=== PATIENT | male | born 1975 | race Hispanic/Latino ===

== ENCOUNTER 2021-08-31 09:51 | Inpatient (IN) | payer SELFPAY ==
[~2021-08-31] VITALS: Ht 177.8 cm; Wt 108.9 kg
[2021-08-31] MEDS ORDERED: LACTATED RINGER'S 1,000 ML INJ ONE ×2 (10:15→11:45)
[2021-08-31 10:22] LABS: BASOPHILS % 0.3 % (0.0-1.0); EOSINOPHILS # (AUTO) 0.2 (0.0-0.4); EOSINOPHILS % 1.2 % (0.0-6.0); HEMATOCRIT 38.6 % (38.2-49.6); HEMOGLOBIN 12.9 g/dL (14.0-18.0); LYMPHOCYTES # (AUTO) 0.8 (1.0-3.2); LYMPHOCYTES % 6.4 % (18.0-39.1); MEAN CORPUSCULAR HGB CONC 33.4 g/dL (31-35); MEAN CORPUSCULAR VOLUME 80.9 fL (81-99); MONOCYTES # (AUTO) 0.5 (0.2-0.8); MONOCYTES % 4.1 % (4.4-11.3); NEUTROPHILS # (AUTO) 10.6 (2.1-6.9); NEUTROPHILS % 87.3 % (38.7-80.0); PLATELET COUNT 267 x10e3/uL (140-360); RED BLOOD COUNT 4.77 x10e6/uL (4.3-5.7); RED CELL DISTRIBUTION WIDTH 12.6 % (11.7-14.4)
[2021-08-31 10:45] LABS: ALBUMIN/GLOBULIN RATIO 0.8 (0.8-2.0); ANION GAP 18.7 mmol/L (8-16); CALCIUM 7.8 mg/dL (8.4-10.2); CREATININE, SERUM 3.23 mg/dL (0.72-1.25); LIPASE 28 U/L (8-78); POTASSIUM 4.7 mmol/L (3.5-5.1)
[2021-08-31] MEDS ORDERED: LACTATED RINGER'S 1,000 ML IV ONE (11:00)
[2021-08-31] MEDS ORDERED: INSULIN REGULAR, HUMAN 100 UNIT/1 ML IV ONE (11:00)
[2021-08-31 12:00] LABS: CLARITY,URINE CLOUDY (CLEAR); COLOR,URINE YELLOW (YELLOW); LEUKOCYTE ESTERASE ,URINE NEGATIVE (NEGATIVE); NITRITE,URINE NEGATIVE (NEGATIVE); PROTEIN,URINE DIPSTICK >=300 (NEGATIVE)
[2021-08-31 12:01] LABS: BACTERIA,URINE MODERATE /HPF; EPITHELIAL CELLS,URINE MODERATE /LPF; KETONES,URINE NEGATIVE (NEGATIVE); URINE UROBILINOGEN 0.2 mg/dL (0.2 - 1)
[2021-08-31] MEDS ORDERED: Morphine 4mg INJECTION 4 MG/ML INJ IV ONE (13:15)
[2021-08-31] MEDS: SODIUM CHLORIDE 0.9% 1000ML 1,000 ML IV SCH ×3 (13:20→22:55)
[2021-08-31] MEDS: ONDANSETRON HCL INJ 2MG/ML 2ML 2 MG/ML VIAL IV PRN ×2 (13:38→20:35)
[2021-08-31 13:45] LABS: ANION GAP 15.4 mmol/L (8-16); CALCIUM 7.2 mg/dL (8.4-10.2); CREATININE, SERUM 2.85 mg/dL (0.72-1.25); POTASSIUM 4.4 mmol/L (3.5-5.1)
[2021-08-31 20:00] VITALS: BP 111/72
[2021-08-31 20:10] VITALS: BP 111/72
[2021-08-31] MEDS ORDERED: JANUMET XR 1001 EACH (20:18)
[2021-08-31] MEDS ORDERED: NEURONTIN100 MG PO (20:18)
[2021-08-31] MEDS ORDERED: PROTONIX20 MG PO (20:18)
[2021-08-31] MEDS ORDERED: LIPITOR20 MG PO (20:18)
[2021-08-31] MEDS ORDERED: LISINOPRIL10 MG PO (20:18)
[2021-08-31] MEDS ORDERED: DEXTROSE 50% SYRINGE 50 ML IV PRN (20:30)
[2021-08-31] MEDS: PANTOPRAZOLE SOD 40 MG TABEC PO SCH (20:33)
[2021-08-31] MEDS: ATORVASTATIN 20 MG TAB PO SCH (20:33)
[2021-08-31] MEDS: Morphine 4mg INJECTION 4 MG/ML INJ IV PRN (20:34)
[2021-08-31] MEDS: INSULIN REGULAR, HUMAN 100 UNIT/1 ML SQ SCH (20:34)
[2021-08-31] MEDS: GABAPENTIN 100 MG CAP PO SCH (21:01)
[2021-08-31] MEDS ORDERED: DOCUSATE SODIUM 100 MG CAP PO PRN (22:30)
[2021-08-31] MEDS ORDERED: INFLUENZA VIRUS VAC SPLIT INJ 0.5 ML SYR IM SCH (23:25)
[2021-09-01] VITALS (7 sets, daily range): BP systolic 111–151; BP diastolic 61–89
[2021-09-01] MEDS: Morphine 4mg INJECTION 4 MG/ML INJ IV PRN ×5 (01:25→22:38)
[2021-09-01] MEDS: ONDANSETRON HCL INJ 2MG/ML 2ML 2 MG/ML VIAL IV PRN (01:25)
[2021-09-01 04:38] LABS: BASOPHILS % 0.3 % (0.0-1.0); EOSINOPHILS # (AUTO) 0.2 (0.0-0.4); EOSINOPHILS % 3.8 % (0.0-6.0); HEMATOCRIT 32.6 % (38.2-49.6); HEMOGLOBIN 10.7 g/dL (14.0-18.0); LYMPHOCYTES # (AUTO) 1.9 (1.0-3.2); LYMPHOCYTES % 30.7 % (18.0-39.1); MEAN CORPUSCULAR HEMOGLOBIN 27.2 pg (28-32); MEAN CORPUSCULAR HGB CONC 32.8 g/dL (31-35); MONOCYTES # (AUTO) 0.6 (0.2-0.8); MONOCYTES % 9.2 % (4.4-11.3); NEUTROPHILS # (AUTO) 3.4 (2.1-6.9); NEUTROPHILS % 55.3 % (38.7-80.0); PLATELET COUNT 204 x10e3/uL (140-360); RED BLOOD COUNT 3.93 x10e6/uL (4.3-5.7); RED CELL DISTRIBUTION WIDTH 12.8 % (11.7-14.4)
[2021-09-01 04:57] LABS: ANION GAP 13.7 mmol/L (8-16); CALCIUM 7.2 mg/dL (8.4-10.2); CREATININE, SERUM 2.41 mg/dL (0.72-1.25); MAGNESIUM 1.6 MG/DL (1.3-2.1); PHOSPHORUS 3.3 MG/DL (2.3-4.7); POTASSIUM 4.7 mmol/L (3.5-5.1)
[2021-09-01 06:55] LABS: CHOL/HDL RATIO 6.4 (3.9-4.7)
[2021-09-01] MEDS: SODIUM CHLORIDE 0.9% 1000ML 1,000 ML IV SCH ×3 (07:40→22:38)
[2021-09-01] MEDS: GABAPENTIN 100 MG CAP PO SCH ×2 (07:59→16:04)
[2021-09-01] MEDS: INSULIN REGULAR, HUMAN 100 UNIT/1 ML SQ SCH ×3 (07:59→16:04)
[2021-09-01] MEDS: ATORVASTATIN 20 MG TAB PO SCH ×2 (07:59→16:04)
[2021-09-01] MEDS: PANTOPRAZOLE SOD 40 MG TABEC PO SCH ×2 (07:59→16:05)
[2021-09-01] MEDS: NICOTINE 14 MG/EA PATCH TOP SCH (17:59)
[2021-09-02] VITALS: BP 152/88
[2021-09-02] MEDS: INSULIN REGULAR, HUMAN 100 UNIT/1 ML SQ SCH ×3 (00:36→11:59)
[2021-09-02 04:00] VITALS: BP 147/90
[2021-09-02] MEDS: SODIUM CHLORIDE 0.9% 1000ML 1,000 ML IV SCH ×2 (04:41→10:00)
[2021-09-02] MEDS: Morphine 4mg INJECTION 4 MG/ML INJ IV PRN ×2 (06:01→12:06)
[2021-09-02 08:26] VITALS: BP 159/93
[2021-09-02] MEDS: NICOTINE 14 MG/EA PATCH TOP SCH (08:47)
[2021-09-02 08:52] VITALS: BP 159/93
[2021-09-02] MEDS ORDERED: PANTOPRAZOLE SOD 40 MG TABEC PO SCH (09:00)
[2021-09-02 12:04] VITALS: BP 147/89
[2021-09-02 12:29] LABS: BASOPHILS % 0.4 % (0.0-1.0); EOSINOPHILS # (AUTO) 0.4 (0.0-0.4); EOSINOPHILS % 5.1 % (0.0-6.0); LYMPHOCYTES % 28.8 % (18.0-39.1); MEAN CORPUSCULAR HEMOGLOBIN 27.8 pg (28-32); MEAN CORPUSCULAR HGB CONC 33.3 g/dL (31-35); MEAN CORPUSCULAR VOLUME 83.3 fL (81-99); MONOCYTES # (AUTO) 0.5 (0.2-0.8); MONOCYTES % 7.8 % (4.4-11.3); NEUTROPHILS % 57.5 % (38.7-80.0); PLATELET COUNT 222 x10e3/uL (140-360); RED BLOOD COUNT 3.96 x10e6/uL (4.3-5.7)
[2021-09-02] MEDS ORDERED: FENOFIBRATE 145 MG TAB PO SCH (12:30)
[2021-09-02 12:47] LABS: ANION GAP 13.7 mmol/L (8-16); CALCIUM 7.8 mg/dL (8.4-10.2); CREATININE, SERUM 1.82 mg/dL (0.72-1.25); POTASSIUM 4.7 mmol/L (3.5-5.1)
[2021-09-02] MEDS ORDERED: NICODERM CQ1 EAC1 TOP (13:35)
[2021-09-02] MEDS ORDERED: ONDANSETRON ODT4 MG PO (13:35)
[2021-09-02] MEDS ORDERED: FENOFIBRATE145 MG PO (13:35)
[2021-09-02] MEDS ORDERED: CEPHALEXIN500 MG PO (13:35)
[2021-09-02] MEDS ORDERED: ONDANSETRON HCL 4 MG ORAL DISINTEGRATING TAB PO PRN (15:30)
[2021-09-02] MEDS ORDERED: GABAPENTIN 100 MG CAP PO SCH (21:00)
[2021-09-02] MEDS ORDERED: ATORVASTATIN 20 MG TAB PO SCH (21:00)
== END 2021-09-02 16:03 | disposition home or self-care (01) | DRG 872 ==
LOC: ER 10:01 → ERHOLD 12:56 → MED/SURG 19:51
PROVIDERS: ADMIT Internal Medicine; ATTEND Internal Medicine
DX: A41.9 Sepsis, unspecified organism (principal); N17.9 Acute kidney failure, unspecified; E87.2 Acidosis; R65.20 Severe sepsis without septic shock; E66.9 Obesity, unspecified; Z68.34 Body mass index [BMI] 34.0-34.9, adult; E78.1 Pure hyperglyceridemia; K52.9 Noninfective gastroenteritis and colitis, unspecified; F17.200 Nicotine dependence, unspecified, uncomplicated; E11.65 Type 2 diabetes mellitus with hyperglycemia; I10 Essential (primary) hypertension; K21.9 Gastro-esophageal reflux disease without esophagitis; Z20.822 Contact with and (suspected) exposure to COVID-19
CPT/HCPCS: 36415; 71045; 80048; 80053; 80061; 81001; 82948; 83036; 83605; 83690; 83735; 83880; 84100; 84484; 85025; 87040; 87086; 93005; 94799; 96361; 99284; J0696; J1817; J2270; J2405; J7030; J7121

== ENCOUNTER 2022-05-26 10:21 | Emergency (ER) | payer OTHER ==
[~2022-05-26] VITALS: Ht 177.8 cm; Wt 108.9 kg
[~2022-05-26 10:21] MED LIST: CEPHALEXIN500 MG PO; FENOFIBRATE145 MG PO; JANUMET XR 1001 EACH; LIPITOR20 MG PO; LISINOPRIL10 MG PO; NEURONTIN100 MG PO; NICODERM CQ1 EAC1 TOP; ONDANSETRON ODT4 MG PO; PROTONIX20 MG PO
[2022-05-26] MEDS ORDERED: KETOROLAC TROMETHAMINE 30 MG/ML VIAL IV STA (10:48)
[2022-05-26] MEDS ORDERED: ONDANSETRON HCL INJ 2MG/ML 2ML 2 MG/ML VIAL IV STA (10:48)
[2022-05-26] MEDS ORDERED: FENTANYL CITRATE/PF 100MCG/2 ML INJ IV ONE ×2 (11:00→12:15)
[2022-05-26 11:04] LABS: BASOPHILS # (AUTO) 0.1 (0.0-0.1); BASOPHILS % 0.7 % (0.0-1.0); EOSINOPHILS # (AUTO) 0.5 (0.0-0.4); EOSINOPHILS % 4.9 % (0.0-6.0); HEMOGLOBIN 12.9 g/dL (14.0-18.0); LYMPHOCYTES % 28.3 % (18.0-39.1); MEAN CORPUSCULAR HEMOGLOBIN 27.2 pg (28-32); MEAN CORPUSCULAR HGB CONC 33.1 g/dL (31-35); MEAN CORPUSCULAR VOLUME 82.1 fL (81-99); MONOCYTES # (AUTO) 0.5 (0.2-0.8); NEUTROPHILS # (AUTO) 6.4 (2.1-6.9); NEUTROPHILS % 60.7 % (38.7-80.0); PLATELET COUNT 259 x10e3/uL (140-360); RED BLOOD COUNT 4.75 x10e6/uL (4.3-5.7); RED CELL DISTRIBUTION WIDTH 12.8 % (11.7-14.4)
[2022-05-26 11:34] LABS: CLARITY,URINE CLEAR (CLEAR); COLOR,URINE YELLOW (YELLOW)
[2022-05-26 11:35] LABS: KETONES,URINE NEGATIVE (NEGATIVE); LEUKOCYTE ESTERASE ,URINE NEGATIVE (NEGATIVE); NITRITE,URINE NEGATIVE (NEGATIVE); PROTEIN,URINE DIPSTICK >=300 (NEGATIVE); URINE UROBILINOGEN 0.2 mg/dL (0.2 - 1)
[2022-05-26 11:43] LABS: ALBUMIN 3.8 g/dL (3.5-5.0); ANION GAP 13.4 mmol/L (8-16); CALCIUM 9.5 mg/dL (8.4-10.2); CREATININE, SERUM 2.59 mg/dL (0.72-1.25); POTASSIUM 4.4 mmol/L (3.5-5.1)
[2022-05-26 11:47] LABS: BACTERIA,URINE FEW /HPF; EPITHELIAL CELLS,URINE MODERATE /LPF; RBC,URINE 21-50 /HPF (0-5)
[2022-05-26] MEDS ORDERED: LACTATED RINGER'S 1,000 ML INJ ONE (12:00)
[2022-05-26] MEDS ORDERED: LACTATED RINGER'S 1,000 ML ONE (12:13)
[2022-05-26] MEDS ORDERED: HYDROCODON-ACE1 EA11 PO ×2 (12:19→12:56)
[2022-05-26] MEDS ORDERED: ONDANSETRON ODT4 MG PO ×2 (12:21→12:56)
[2022-05-26 13:16] VITALS: BP 162/90
== END 2022-05-26 12:55 | disposition home or self-care (01) ==
LOC: ER 10:24
DX: R10.31 Right lower quadrant pain (principal); K80.20 Calculus of gallbladder without cholecystitis without obstruction; M54.50 Low back pain, unspecified; I12.9 Hypertensive chronic kidney disease with stage 1 through stage 4 chronic kidney disease, or unspecified chronic kidney disease; E11.22 Type 2 diabetes mellitus with diabetic chronic kidney disease; E11.65 Type 2 diabetes mellitus with hyperglycemia; N18.9 Chronic kidney disease, unspecified; E78.5 Hyperlipidemia, unspecified
CPT/HCPCS: 36415; 74176; 80053; 81001; 85025; 93005; 99284; J1885; J2405; J3010; J7121